=== PATIENT | female | born 1955 | race Caucasian/White ===

== ENCOUNTER 2016-07-31 10:03 | Emergency (ER) | payer MEDICAID ==
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
--- NOTE | 2016-07-31 12:13 | Diagnostic Imaging Report ---
Cervical spine (4 views) HISTORY: Pain, trauma Alignment is normal. Degenerative changes are noted with hypertrophic spur formation seen about the endplates of C3, C4, and a greater degree C5 and C6. No acute abnormalities. No definite fractures. The prevertebral soft tissues appear normal. IMPRESSION: 1. No definite acute abnormalities 2. Degenerative changes
== END 2016-07-31 12:55 | disposition home or self-care (01) ==
LOC: ER 10:03
DX: S16.1XXA Strain of muscle, fascia and tendon at neck level, initial encounter (principal); S00.03XA Contusion of scalp, initial encounter; Z90.49 Acquired absence of other specified parts of digestive tract; X58.XXXA Exposure to other specified factors, initial encounter; Y93.89 Activity, other specified; Y92.488 Other paved roadways as the place of occurrence of the external cause; Y99.8 Other external cause status
CPT/HCPCS: 72040-TC; Z7502